=== PATIENT | female | born 1970 | race Caucasian/White ===

== ENCOUNTER → 2020-07-19 | Day surgery (SDC) | payer OTHER ==
[~2020-07-19] MED LIST: AEROCHAMBER1 EA XX; LORATADINE D PO; MEGACE TAB 20 M20 MG PO; MUCUS RELIEF PO; OMEPRAZOLE40 MG PO; PREDNISONE20 MG PO; VENTOLIN HFA 66.7 GM INH; VITAMIN C500 M4 PO; VITAMIN D325 MC6 PO
== END | disposition home or self-care (01) ==
LOC: OR 06:59
DX: J34.2 Deviated nasal septum (principal); J34.3 Hypertrophy of nasal turbinates; J32.9 Chronic sinusitis, unspecified; K21.9 Gastro-esophageal reflux disease without esophagitis; J44.9 Chronic obstructive pulmonary disease, unspecified; F17.210 Nicotine dependence, cigarettes, uncomplicated; Z79.899 Other long term (current) drug therapy
CPT/HCPCS: 93005; C1726; J0171; J0690; J1100; J2001; J2250; J2370; J2405; J2704; J2710; J2765; J3010; J7030; J7120

== ENCOUNTER → 2020-11-15 | Outpatient (CLI) | payer OTHER | LOC: RAD 10-22 08:00 | DX: R13.10 Dysphagia, unspecified (principal); K22.4 Dyskinesia of esophagus | CPT/HCPCS: 74220 ==

== ENCOUNTER → 2021-01-06 | Day surgery (SDC) | payer OTHER | END | disposition home or self-care (01) | LOC: OR 07:13 | DX: K22.4 Dyskinesia of esophagus (principal); K21.00 Gastro-esophageal reflux disease with esophagitis, without bleeding; K31.9 Disease of stomach and duodenum, unspecified; F17.200 Nicotine dependence, unspecified, uncomplicated; R63.6 Underweight; Z68.1 Body mass index [BMI] 19.9 or less, adult; Z79.899 Other long term (current) drug therapy | CPT/HCPCS: J2704; J7040 ==

== ENCOUNTER → 2021-03-01 | Outpatient (CLI) | payer OTHER | LOC: US 09:16 | DX: K21.9 Gastro-esophageal reflux disease without esophagitis (principal) | CPT/HCPCS: 36415; 76705; 80076; 82150; 83690 ==

== ENCOUNTER → 2021-04-26 | Outpatient (CLI) | payer OTHER | LOC: CT 10:35 | DX: R10.84 Generalized abdominal pain (principal); K76.89 Other specified diseases of liver | CPT/HCPCS: Q9967 ==